=== PATIENT | male | born 1950 | race Caucasian/White ===

== ENCOUNTER 2019-08-14 07:26 | Emergency (ER) | payer MEDICARE, BC ==
--- NOTE | 2019-08-14 08:31 | EDM.PDOC ---
ED HPI GENERAL MEDICAL PROBLEM - General Chief Complaint: Respiratory Problem Stated Complaint: SOB Time Seen by Provider: 08/14/19 08:24 Source of Information: Reports: Patient, Family, RN Notes Reviewed History Limitations: Reports: No Limitations - History of Present Illness INITIAL COMMENTS - FREE TEXT/NARRATIVE: 69-year-old gentleman presents emergency department with a complaint of shortness of breath, he has a known history of coronary artery disease as well as COPD, states over the last 3 days he is gotten progressively more short of breath he denies any weight gain had some fevers around 100 for the last 2 days but nothing today does have a pulse oximeter at home did not notice any hypoxia. Does produce yellow sputum no chest pain does get short of breath with exertion. - Related Data Allergies Allergy/AdvReac Type Severity Reaction Status Date / Time No Known Allergies Allergy Verified 08/14/19 07:43 Home Meds: Home Meds Aspirin [Halfprin] 81 mg PO DAILY 07/12/14 [History] Lisinopril 20 mg PO DAILY 07/12/14 [History] atorvaSTATin Calcium [Atorvastatin Calcium] 80 mg PO DAILY 07/12/14 [History] Albuterol Sulfate [Proair Hfa] 1 puff IH Q4H PRN 10/01/14 [History] carvediloL [Coreg] 25 mg PO BID 10/01/14 [History] Liraglutide [Victoza] 1.8 mg SUBCUT DAILY 12/30/14 [History] Budesonide/Formoterol [Symbicort 160-4.5 MCG] 1 puff IH ASDIRECTED 11/11/15 [ History] Spironolactone [Aldactone] 12.5 mg PO DAILY 11/11/15 [History] Torsemide [Demadex] 20 mg PO DAILY 11/11/15 [History] metFORMIN [Glucophage] 1,000 mg PO WITHDINNER 11/11/15 [History] metFORMIN [Glucophage] 1,500 mg PO ACBREAKFAST 11/11/15 [History] Acetaminophen/oxyCODONE [Percocet 325-5 MG] 1 - 2 tab PO Q4H PRN #40 tablet [Rx] Magnesium Hydroxide [Milk of Magnesia] 30 ml PO DAILY PRN #2 ml 11/16/15 [Rx] Magnesium Oxide 400 mg PO DAILY #90 tablet 11/16/15 [Rx] Albuterol/Ipratropium [DuoNeb 3.0-0.5 MG/3 ML] 3 ml .XX Q2H PRN #90 neb [Rx] Doxycycline [Vibramycin] 100 mg PO BID #14 cap 08/14/19 [Rx] predniSONE [Prednisone] 20 mg PO DAILY #7 tablet 08/14/19 [Rx] Past Medical History HEENT History: Reports: Impaired Vision Cardiovascular History: Reports: CAD, Heart Failure, High Cholesterol, Hypertension, [place], Pacemaker Respiratory History: Reports: COPD, Sleep Apnea Musculoskeletal History: Reports: Arthritis, Fracture Neurological History: Reports: Concussion Endocrine/Metabolic History: Reports: Diabetes, Type II, Obesity/BMI 30+ - Infectious Disease History Infectious Disease History: Reports: Chicken Pox, Measles, Mumps, Other (See Below) Other Infectious Disease History: mono x three as a child - Past Surgical History Cardiovascular Surgical History: Reports: AICD, Coronary Artery Stent GI Surgical History: Reports: Hernia Repair/Other, Other (See Below) Other GI Surgeries/Procedures: cyst removal, internal abdomen. Social & Family History - Tobacco Use Smoking Status *Q: Former Smoker Used Tobacco, but Quit: Yes Month/Year Tobacco Last Used: 07/2019 - Caffeine Use Caffeine Use: Reports: Coffee Other Caffeine Use: 3 cups per day - Recreational Drug Use Recreational Drug Use: No ED ROS GENERAL - Review of Systems Review Of Systems: See Below Constitutional: Reports: Fever HEENT: Reports: No Symptoms Respiratory: Reports: Shortness of Breath, Wheezing, Cough, Sputum Cardiovascular: Reports: Dyspnea on Exertion. Denies: Chest Pain GI/Abdominal: Reports: No Symptoms : Reports: No Symptoms Neurological: Reports: No Symptoms ED EXAM, GENERAL - Physical Exam Exam: See Below Exam Limited By: No Limitations General Appearance: Alert, WD/WN, No Apparent Distress Throat/Mouth: Normal Inspection, Normal Lips, Normal Teeth, Normal Gums, Normal Oropharynx, Normal Voice, No Airway Compromise Head: Atraumatic, Normocephalic Neck: Normal Inspection, Supple, Non-Tender, Full Range of Motion Respiratory/Chest: No Accessory Muscle Use, Decreased Breath Sounds, Crackles, Wheezing Cardiovascular: Regular Rate, Rhythm, No Murmur GI/Abdominal: Soft, Non-Tender Extremities: Normal Inspection, Normal Range of Motion, No Pedal Edema Course - Vital Signs Last Recorded V/S: Last Vital Signs Temp 96.3 F 08/14/19 07:42 Pulse 96 08/14/19 09:20 Resp 22 H 08/14/19 09:20 BP 113/61 08/14/19 09:20 Pulse Ox 90 L 08/14/19 09:20 - Orders/Labs/Meds Orders: Active Orders 24 hr Category Date Time Status EKG Documentation Completion [RC] ASDIRECTED Care 08/14/19 08:02 Active RT Aerosol Therapy [RC] ASDIRECTED Care 08/14/19 09:01 Active EKG 12 Lead [EK] Routine Ther 08/14/19 08:01 Ordered Labs: Laboratory Tests 08/14/19 08/14/19 Range/Units 08:16 08:16 WBC 7.4 (4.5-11.0) K/uL RBC 4.89 (4.30-5.90) M/uL Hgb 14.0 (12.0-15.0) g/dL Hct 43.8 (40.0-54.0) % MCV 90 (80-98) fL MCH 29 (27-31) pg MCHC 32 (32-36) % Plt Count 163 (150-400) K/uL Sodium 135 L (140-148) mmol/L Potassium 4.4 (3.6-5.2) mmol/L Chloride 100 (100-108) mmol/L Carbon Dioxide 25 (21-32) mmol/L Anion Gap 14.4 H (5.0-14.0) mmol/L BUN 14 (7-18) mg/dL Creatinine 1.1 (0.8-1.3) mg/dL Est Cr Clr Drug Dosing 61.32 mL/min Estimated GFR (MDRD) > 60 (>60) Glucose 162 H (74-106) mg/dL Calcium 8.8 (8.5-10.1) mg/dL Total Bilirubin 1.3 H (0.2-1.0) mg/dL AST 16 (15-37) U/L ALT 27 (12-78) U/L Alkaline Phosphatase 97 (46-116) U/L Troponin I < 0.017 (0.000-0.056) ng/mL NT-Pro-B Natriuret Pep 194 H (5-125) pg/mL Total Protein 8.0 (6.4-8.2) g/dL Albumin 3.7 (3.4-5.0) g/dL Globulin 4.3 H (2.3-3.5) g/dL Albumin/Globulin Ratio 0.9 L (1.2-2.2) Meds: Medications Discontinued Medications Generic Name Dose Route Start Last Admin Trade Name Freq PRN Reason Stop Dose Admin Albuterol/Ipratropium 3 ml 08/14/19 09:01 08/14/19 09:18 Duoneb 3.0-0.5 Mg/3 Ml NEB 08/14/19 09:02 3 ml ONETIME ONE Administration Methylprednisolone Sodium Succinate 125 mg 08/14/19 09:01 08/14/19 09:18 Solu-Medrol IVPUSH 08/14/19 09:02 125 mg ONETIME ONE Administration Departure - Departure Time of Disposition: 10:04 Disposition: Home, Self-Care 01 Condition: Fair Clinical Impression: COPD with acute bronchitis - Discharge Information Prescriptions: Albuterol/Ipratropium [DuoNeb 3.0-0.5 MG/3 ML] 3 ml .XX Q2H PRN #90 neb PRN Reason: Wheezing Doxycycline [Vibramycin] 100 mg PO BID #14 cap predniSONE [Prednisone] 20 mg PO DAILY #7 tablet Referrals: Sandro Delgado MD [Primary Care Provider] - Forms: ED Department Discharge Additional Instructions: Take your full course of antibiotics start today, take the full course of prednisone start tomorrow use your duo nebs as needed for wheezing or shortness of breath symptoms you can use this every couple hours. All your medications have been faxed to [facility]. Please follow-up with your primary care in 7 to 10 days for further evaluation considering oxygen study at night to see if you become hypoxic when your O2 saturation dips below 90. Call return to the emergency department worsening of symptoms Sepsis Event Note - Evaluation Sepsis Screening Result: No Definite Risk - Focused Exam Vital Signs: Vital Signs Temp Pulse Resp BP Pulse Ox 08/14/19 09:20 96 22 H 113/61 90 L 08/14/19 07:42 96.3 F 99 24 H 124/73 91 L 08/14/19 07:39 96.3 F 99 24 H 124/73 91 L Date Exam was Performed: 01/10/20 Time Exam was Performed: 10:02 - My Orders Last 24 Hours: My Active Orders 08/14/19 08:01 EKG 12 Lead [EK] Routine 08/14/19 08:02 EKG Documentation Completion [RC] ASDIRECTED 08/14/19 09:01 RT Aerosol Therapy [RC] ASDIRECTED - Assessment/Plan Last 24 Hours: My Active Orders 08/14/19 08:01 EKG 12 Lead [EK] Routine 08/14/19 08:02 EKG Documentation Completion [RC] ASDIRECTED 08/14/19 09:01 RT Aerosol Therapy [RC] ASDIRECTED Plan: Assessment Acuity = acute Site and laterality = COPD exacerbation with bronchitis Etiology = unknown Manifestations = wheezing, cough, hypoxia Location of injury = Home Lab values = CBC unremarkable total bilirubin elevated 1.3 consistent hyperbilirubinemia, troponins negative BNP within normal limits chest x-ray reveals no acute process EKG demonstrates normal sinus rhythm Plan He had good improvement with albuterol neb provided in the ED his hypoxia did improve to within normal limits 90-91. Discussed options with him he declined hospitalization therefore prescription written for doxycycline 100 mg p.o. twice daily x7 days, prednisone 20 mg once a day x7 days he did receive 125 mg Solu-Medrol in the ED, also prescription written for duo nebs and adenosine with supplies those medications have been faxed to [facility] he is going to follow-up with his primary care in 7 to 10 days for evaluation of hypoxia particularly at night This note was dictated using [employer] voice recognition software please call with any questions on syntax or grammar.
--- NOTE | 2019-08-14 08:41 | CRLCR ---
INDICATION: Shortness of breath TECHNIQUE: Chest 2 views. COMPARISON: 12/30/2014 FINDINGS: Cardiovascular and mediastinum: Heart size and vasculature are normal in caliber and appearance. Mediastinum is within normal limits. Left-sided transvenous pacer device. Lungs and pleural spaces: Lungs are clear. No sign of infiltrate or mass. No sign of pleural effusion. No pneumothorax. Bones and soft tissues: No significant findings. IMPRESSION: Unremarkable chest. Dictated by Mike Neff MD @ 08/14/2019 8:40:27 AM Dictated by: Mike Neff MD @ 08/14/2019 08:40:32 (Electronically Signed)
[2019-08-14] MEDS ORDERED: Albuterol/Ipratropium 3.0-0.5 MG/3 ML Neb Soln NEB ONE (09:01)
[2019-08-14] MEDS ORDERED: methylPREDNISolone Sodium Succinate 125 MG/2 ML SDV IVPUSH ONE (09:01)
[2019-08-14 09:22] VITALS: BP 113/61; PULSE 96
== END 2019-08-14 10:00 | disposition home or self-care (01) ==
LOC: JP.ED 07:26
DX: J44.0 Chronic obstructive pulmonary disease with (acute) lower respiratory infection (principal); J20.9 Acute bronchitis, unspecified; I25.2 Old myocardial infarction; I25.10 Atherosclerotic heart disease of native coronary artery without angina pectoris; E78.00 Pure hypercholesterolemia, unspecified; I11.0 Hypertensive heart disease with heart failure; I50.9 Heart failure, unspecified; E11.9 Type 2 diabetes mellitus without complications; E66.9 Obesity, unspecified; Z79.82 Long term (current) use of aspirin; Z79.899 Other long term (current) drug therapy; Z79.51 Long term (current) use of inhaled steroids; Z68.31 Body mass index [BMI] 31.0-31.9, adult; Z79.84 Long term (current) use of oral hypoglycemic drugs; Z87.891 Personal history of nicotine dependence
CPT/HCPCS: 36415; 71046; 80053; 83880; 84484; 85027; 93005; 93010; 94640; 96374; 99283; 99285; J2930; J7620-GY

== ENCOUNTER 2020-07-26 09:10 | Emergency (ER) | payer MEDICARE, BC ==
[2020-07-26 09:26] VITALS: BP 129/70; PULSE 90
--- NOTE | 2020-07-26 10:31 | EDM.PDOC ---
ED HPI GENERAL MEDICAL PROBLEM - General Chief Complaint: Respiratory Problem Stated Complaint: HARD TO BREATHE Time Seen by Provider: 07/26/20 10:28 Source of Information: Reports: Patient, RN Notes Reviewed History Limitations: Reports: No Limitations - History of Present Illness INITIAL COMMENTS - FREE TEXT/NARRATIVE: 69-year-old gentleman presents emergency department a complaint of shortness of breath, he has known history of COPD with chronic bronchitis he states he woke up this morning had difficulty breathing took his usual rescue medications however felt no relief.. Reports to the emergency department for further evaluation however at this time he feels he is back to his normal self wonders if he may have had some anxiety with shortness of breath and had a bit of a panic attack he did use his rescue inhaler feels it has worked now for him he feels back to his baseline he is. Has no fevers no body aches no loss of taste or smell - Related Data Allergies Allergy/AdvReac Type Severity Reaction Status Date / Time No Known Allergies Allergy Verified 08/14/19 07:43 Home Meds: Home Meds Aspirin [Halfprin] 81 mg PO DAILY 07/12/14 [History] atorvaSTATin Calcium [Atorvastatin Calcium] 40 mg PO WITHDINNER 07/12/14 [History] Albuterol Sulfate [Proair Hfa] 1 puff IH Q4H PRN 10/01/14 [History] carvediloL [Coreg] 25 mg PO BID 10/01/14 [History] Liraglutide [Victoza] 1.8 mg SUBCUT DAILY 12/30/14 [History] Spironolactone [Aldactone] 12.5 mg PO DAILY 11/11/15 [History] Torsemide [Demadex] 20 mg PO DAILY 11/11/15 [History] metFORMIN [Glucophage] 1,000 mg PO WITHDINNER 11/11/15 [History] metFORMIN [Glucophage] 1,500 mg PO ACBREAKFAST 11/11/15 [History] Magnesium Hydroxide [Milk of Magnesia] 30 ml PO DAILY PRN #2 ml 11/16/15 [Rx] Albuterol [Ventolin HFA] 1 puff INH Q6HR PRN 07/26/20 [History] Albuterol/Ipratropium [DuoNeb 3.0-0.5 MG/3 ML] 3 ml .XX Q6H PRN 07/26/20 [History] Budesonide/Formoterol Fumarate [Symbicort 160-4.5 Mcg Inhaler] 2 puff INH BID 07/26/20 [History] Cyanocobalamin (Vitamin B-12) [Vitamin B12] 1 tab PO DAILY 07/26/20 [History] Ferrous Sulfate 1 tab PO BID 07/26/20 [History] Magnesium Oxide 400 mg PO BID 07/26/20 [History] Sacubitril/Valsartan [Entresto 97 mg-103 mg Tablet] 1 tab PO BID 07/26/20 [History] Sotalol [Betapace] 1 tab PO BID 07/26/20 [History] Tiotropium [Spiriva HandiHaler] 1 cap INH DAILY 07/26/20 [History] Past Medical History HEENT History: Reports: Impaired Vision Cardiovascular History: Reports: CAD, Heart Failure, High Cholesterol, Hypertension, [place], Pacemaker Respiratory History: Reports: COPD, Sleep Apnea Musculoskeletal History: Reports: Arthritis, Fracture Neurological History: Reports: Concussion Endocrine/Metabolic History: Reports: Diabetes, Type II, Obesity/BMI 30+ - Infectious Disease History Infectious Disease History: Reports: Chicken Pox, Measles, Mumps, Other (See Below) Other Infectious Disease History: mono x three as a child - Past Surgical History HEENT Surgical History: Reports: None Cardiovascular Surgical History: Reports: AICD, Coronary Artery Stent GI Surgical History: Reports: Hernia Repair/Other, Other (See Below) Other GI Surgeries/Procedures: cyst removal, internal abdomen. Social & Family History - Tobacco Use Tobacco Use Status *Q: Former Tobacco User Used Tobacco, but Quit: Yes Month/Year Tobacco Last Used: 2019 - Caffeine Use Caffeine Use: Reports: Coffee Other Caffeine Use: 3 cups per day - Recreational Drug Use Recreational Drug Use: No ED ROS GENERAL - Review of Systems Review Of Systems: See Below Constitutional: Reports: No Symptoms HEENT: Reports: No Symptoms Respiratory: Reports: Shortness of Breath. Denies: Wheezing, Cough Cardiovascular: Reports: No Symptoms GI/Abdominal: Reports: No Symptoms ED EXAM, GENERAL - Physical Exam Exam: See Below Exam Limited By: No Limitations General Appearance: Alert, WD/WN, No Apparent Distress Respiratory/Chest: No Respiratory Distress, Lungs Clear, Normal Breath Sounds, No Accessory Muscle Use, Chest Non-Tender Cardiovascular: Regular Rate, Rhythm, No Murmur Course - Vital Signs Last Recorded V/S: Last Vital Signs Temp 96.8 F L 07/26/20 09:23 Pulse 90 07/26/20 09:23 Resp 20 07/26/20 09:23 BP 129/70 07/26/20 09:23 Pulse Ox 90 L 07/26/20 09:23 Departure - Departure Time of Disposition: 10:30 Disposition: Home, Self-Care 01 Condition: Fair Clinical Impression: COPD (chronic obstructive pulmonary disease) Qualifiers: COPD type: chronic bronchitis Chronic bronchitis type: simple Qualified Code(s): J41.0 - Simple chronic bronchitis - Discharge Information Instructions: Chronic Obstructive Pulmonary Disease Exacerbation, [id number] Referrals: PCP,None [Primary Care Provider] - Additional Instructions: Continue using your current medications, please followup with your primary care provider in 3-5 days if not better, please call return to the emergency department with worsening of symptoms. Sepsis Event Note (ED) - Evaluation Sepsis Screening Result: No Definite Risk - Focused Exam Vital Signs: Vital Signs Temp Pulse Resp BP Pulse Ox 07/26/20 09:23 96.8 F L 90 20 129/70 90 L 07/26/20 09:22 96.8 F L 90 20 129/70 90 L - Assessment/Plan Plan: Assessment Acuity = acute on chronic Site and laterality = chronic obstructive pulmonary disease Etiology = unknown possibly related to dyspnea related to ongoing disease with anxiety Manifestations = none Location of injury = Home Lab values = none Plan Elected to do watchful waiting at this time we will continue with his regular medications, return for follow-up if needed or follow-up with his primary care a s needed This note was dictated using [employer] voice recognition software please call with any questions on syntax or grammar.
== END 2020-07-26 10:45 | disposition home or self-care (01) ==
LOC: JP.ED 09:10
DX: J41.0 Simple chronic bronchitis (principal); I25.10 Atherosclerotic heart disease of native coronary artery without angina pectoris; I11.0 Hypertensive heart disease with heart failure; I50.9 Heart failure, unspecified; E78.00 Pure hypercholesterolemia, unspecified; I25.2 Old myocardial infarction; M19.90 Unspecified osteoarthritis, unspecified site; E11.9 Type 2 diabetes mellitus without complications; E66.9 Obesity, unspecified; Z68.32 Body mass index [BMI] 32.0-32.9, adult; Z79.82 Long term (current) use of aspirin; Z79.84 Long term (current) use of oral hypoglycemic drugs; Z79.899 Other long term (current) drug therapy; Z87.891 Personal history of nicotine dependence
CPT/HCPCS: 99283

== ENCOUNTER 2021-08-02 04:41 | Inpatient (IN) | payer MEDICARE, BC ==
[2021-08-02] MEDS ORDERED: methylPREDNISolone Sodium Succinate 125 MG/2 ML SDV IVPUSH ONE (04:57)
--- NOTE | 2021-08-02 05:06 | EDM.PDOC ---
<Ozzy Salvador - Last Filed: 08/02/21 06:45> ED HPI GENERAL MEDICAL PROBLEM - General Chief Complaint: Respiratory Problem Stated Complaint: [facility] Time Seen by Provider: 08/02/21 04:45 Source of Information: Reports: Patient, EMS History Limitations: Reports: No Limitations - History of Present Illness INITIAL COMMENTS - FREE TEXT/NARRATIVE: 70-year-old male with known COPD and coronary artery disease, presents with significant shortness of breath for the last 10 hours. It came on fairly suddenly last evening, he tried his rescue inhalers with no success. He called EMS this morning, they found him to be tripoding with O2 saturations in the 70s and very anxious. He arrived on 6 L of nasal cannula and O2 sats in the low 90s, however when he transferred over to the bed he dropped into the 80s so a nonrebreather was used temporarily. He did get a DuoNeb in route. He has no fevers or chills, no pain, no increased peripheral edema or cough. He is fully vaccinated for Covid. Denies any chest pain. He has had this happen to him a few times in the past and it was called "panic attack". Onset: Sudden (Symptoms started fairly suddenly last evening around 7-8 o'clock) Duration: Hour(s): (9 hours) Improves with: Reports: None Worsens with: Reports: Other (Activity causes increased shortness of breath), Movement Associated Symptoms: Reports: Cough, Malaise, Shortness of Breath, Weakness. Denies: Chest Pain, Fever/Chills, Headaches Treatments MATTRESS STUFFER: Reports: Other (see below) (Received a DuoNeb in route) denies pain Pain Score (Numeric/FACES): 0 - Related Data Allergies Allergy/AdvReac Type Severity Reaction Status Date / Time No Known Allergies Allergy Verified 08/02/21 04:48 Home Meds: Home Meds Aspirin [Halfprin] 81 mg PO DAILY 07/12/14 [History] atorvaSTATin Calcium [Atorvastatin Calcium] 40 mg PO WITHDINNER 07/12/14 [History] Albuterol Sulfate [Proair Hfa] 1 puff IH Q4H PRN 10/01/14 [History] carvediloL [Coreg] 25 mg PO BID 10/01/14 [History] Spironolactone [Aldactone] 12.5 mg PO DAILY 11/11/15 [History] Torsemide [Demadex] 20 mg PO ASDIRECTED PRN 11/11/15 [History] metFORMIN [Glucophage] 1,000 mg PO WITHDINNER 11/11/15 [History] metFORMIN [Glucophage] 1,500 mg PO ACBREAKFAST 11/11/15 [History] Albuterol [Ventolin HFA] 1 puff INH Q6HR PRN 07/26/20 [History] Albuterol/Ipratropium [DuoNeb 3.0-0.5 MG/3 ML] 3 ml .XX Q6H PRN 07/26/20 [History] Budesonide/Formoterol Fumarate [Symbicort 160-4.5 Mcg Inhaler] 2 puff INH BID 07/26/20 [History] Cyanocobalamin (Vitamin B-12) [Vitamin B12] 1 tab PO DAILY 07/26/20 [History] Ferrous Sulfate 1 tab PO BID 07/26/20 [History] Magnesium Oxide 400 mg PO BID 07/26/20 [History] Sacubitril/Valsartan [Entresto 97 mg-103 mg Tablet] 1 tab PO BID 07/26/20 [History] Sotalol [Betapace] 1 tab PO BID 07/26/20 [History] Tiotropium [Spiriva HandiHaler] 1 cap INH DAILY 07/26/20 [History] Cholecalciferol (Vitamin D3) [Cholecalciferol] 1 gm MC DAILY 08/08/20 [History] Clopidogrel [Plavix] 75 mg PO DAILY 08/02/21 [History] LORazepam [Ativan] 0.5 mg PO BID PRN 08/02/21 [History] traZODone 50 mg PO BEDTIME 08/02/21 [History] Past Medical History HEENT History: Reports: Impaired Vision, Other (See Below) Other HEENT History: glasses Cardiovascular History: Reports: CAD, Heart Failure, High Cholesterol, Hypertension, [place], Pacemaker, Stents Respiratory History: Reports: COPD, Sleep Apnea, Other (See Below) Other Respiratory History: Cpap Musculoskeletal History: Reports: Arthritis, Fracture Neurological History: Reports: Concussion Psychiatric History: Reports: Anxiety, Depression Endocrine/Metabolic History: Reports: Diabetes, Type II, Obesity/BMI 30+ Hematologic History: Reports: Anticoagulation Therapy - Infectious Disease History Infectious Disease History: Reports: Chicken Pox, Measles, Mumps, Other (See Below) Other Infectious Disease History: mono x three as a child - Past Surgical History HEENT Surgical History: Reports: None Cardiovascular Surgical History: Reports: AICD, Coronary Artery Stent GI Surgical History: Reports: Hernia Repair/Other, Other (See Below) Other GI Surgeries/Procedures: cyst removal, internal abdomen. Social & Family History - Tobacco Use Tobacco Use Status *Q: Never Tobacco User - Caffeine Use Caffeine Use: Reports: Coffee Other Caffeine Use: 3 cups per day - Recreational Drug Use Recreational Drug Use: No ED ROS GENERAL - Review of Systems Review Of Systems: See Below Constitutional: Reports: Malaise. Denies: Fever, Chills HEENT: Reports: No Symptoms Respiratory: Reports: Shortness of Breath, Cough Cardiovascular: Denies: Chest Pain, Palpitations GI/Abdominal: Reports: No Symptoms Skin: Reports: No Symptoms Neurological: Reports: No Symptoms. Denies: Headache Psychiatric: Reports: Anxiety ED EXAM, GENERAL - Physical Exam Exam: See Below Exam Limited By: No Limitations General Appearance: Alert, Anxious, Mild Distress Eye Exam: Bilateral Eye: Normal Inspection Head: Atraumatic Respiratory/Chest: Respiratory Distress (Mild to moderate respiratory distress), Decreased Breath Sounds (Diffuse decreased breath sounds, no rales rhonchi or wheezing) Cardiovascular: Regular Rate, Rhythm, Other (Very distant heart sounds, no murmur) GI/Abdominal: Soft, Non-Tender Extremities: Other (Just a trace of symmetric ankle edema) Neurological: Alert, Oriented Psychiatric: Anxious Skin Exam: Warm, Dry Course - Re-Assessments/Exams Free Text/Narrative Re-Assessment/Exam: 08/02/21 05:05 IV was started, CBC CMP and troponin were drawn and a 1 view chest x-ray ordered. A 4 Plex Covid was obtained and the patient was given 125 mg of Solu- Medrol. O2 supplementation was continued and gradually decreased. 08/02/21 05:43 Chest x-ray showed hyperinflated lungs very similar to his chest x-rays in the past 2 years. No infiltrate or effusion, no congestive failure seen. Patient was then given a Xopenex nebulizer and continue to improve. 08/02/21 06:45 Patient is now resting comfortably with O2 saturations around 90 to 91%. Troponin is negative, 4 Plex viral study is negative, white count is mildly elevated at 13.8 but chemistry profile is all normal. After the patient wakes up he can ambulate around and if he desaturates or still has significant shortness of breath he may need 1 day of hospitalization for treatment for COPD exacerbation. If he does well he can be discharged on some daily steroid and antibiotics. Care was turned over to Dr. Raymundo and also his case was discussed with Dr. Cevallos in case he needs admission. Departure - Departure Disposition: Refer to Observation Clinical Impression: COPD exacerbation - Discharge Information Referrals: PCP,None [Primary Care Provider] - Forms: ED Department Discharge Sepsis Event Note (ED) - Evaluation Sepsis Screening Result: No Definite Risk <Oliver Raymundo - Last Filed: 08/02/21 09:35> Course - Vital Signs Last Recorded V/S: Last Vital Signs Temp 98.0 F 08/02/21 05:30 Pulse 102 H 08/02/21 06:19 Resp 20 08/02/21 08:56 BP 107/55 L 08/02/21 08:56 Pulse Ox 93 L 08/02/21 08:56 - Orders/Labs/Meds Orders: Active Orders 24 hr Category Date Time Status RT Aerosol Therapy [RC] ASDIRECTED Care 08/02/21 05:34 Active Isolation [COMM] Stat Oth 08/02/21 04:56 Ordered Labs: Laboratory Tests 08/02/21 08/02/21 08/02/21 Range/Units 05:03 05:03 05:05 WBC 13.8 H (4.5-11.0) K/uL RBC 4.72 (4.30-5.90) M/uL Hgb 13.5 (12.0-15.0) g/dL Hct 41.9 (40.0-54.0) % MCV 89 (80-98) fL MCH 29 (27-31) pg MCHC 32 (32-36) % Plt Count 220 (150-400) K/uL Neut % (Auto) 75.7 H (36-66) % Lymph % (Auto) 14.7 L (24-44) % [place] % (Auto) 7.1 H (2-6) % Eos % (Auto) 2.1 (2-4) % Baso % (Auto) 0.4 (0-1) % Sodium 135 L (140-148) mmol/L Potassium 4.6 (3.6-5.2) mmol/L Chloride 97 L (100-108) mmol/L Carbon Dioxide 29 (21-32) mmol/L Anion Gap 13.6 (5.0-14.0) mmol/L BUN 15 (7-18) mg/dL Creatinine 1.2 (0.8-1.3) mg/dL Est Cr Clr Drug Dosing 55.42 mL/min Estimated GFR (MDRD) 60 (>60) Glucose 214 H (74-106) mg/dL Calcium 9.1 (8.5-10.1) mg/dL Total Bilirubin 1.0 (0.2-1.0) mg/dL AST 12 L (15-37) U/L ALT 23 (12-78) U/L Alkaline Phosphatase 77 (46-116) U/L Troponin I High Sens 12.8 (<=60.3) pg/mL Total Protein 7.3 (6.4-8.2) g/dL Albumin 3.7 (3.4-5.0) g/dL Globulin 3.6 H (2.3-3.5) g/dL Albumin/Globulin Ratio 1.0 L (1.2-2.2) Influenza Type A RNA Negative (NEGATIVE) RSV RNA (INAAT) Negative (NEGATIVE) Influenza Type B RNA Negative (NEGATIVE) SARS-CoV-2 RNA (RUSSELL) Negative (NEGATIVE) Meds: Medications Discontinued Medications Generic Name Dose Route Start Last Admin Trade Name Freq PRN Reason Stop Dose Admin Levalbuterol HCl 1.25 mg 08/02/21 05:33 08/02/21 05:40 Levalbuterol Hcl 1.25 Mg/3 Ml Neb NEB 08/02/21 05:34 1.25 mg ONETIME ONE Administration Methylprednisolone Sodium Succinate 125 mg 08/02/21 04:57 08/02/21 05:03 Methylprednisolone Sodium Succinate 125 Mg/2 Ml Sdv IVPUSH 08/02/21 04:58 125 mg ONETIME ONE Administration Departure - Departure Time of Disposition: 09:35 Condition: Fair Sepsis Event Note (ED) - Focused Exam Vital Signs: Vital Signs Temp Pulse Resp BP Pulse Ox 08/02/21 08:56 20 107/55 L 93 L 08/02/21 08:26 20 109/70 94 L 08/02/21 07:56 20 112/64 94 L 08/02/21 07:26 19 107/60 94 L 08/02/21 06:19 102 H 23 H 107/68 90 L 08/02/21 05:30 98.0 F 105 H 25 H 116/60 90 L 08/02/21 04:53 98.0 F 110 H 19 173/91 H 99 08/02/21 04:50 98.0 F 110 H 19 173/91 H 99 - Assessment/Plan Plan: Assessment Acuity = acute Site and laterality = COPD exacerbation with hypoxia on exertion Etiology = unknown Manifestations = none Location of injury = Home Plan KTook over care from Dr. Plata 7 AM plan was to reassess he remains O2 saturation low 90s on room air however when he was ambulated in the hallway his O2 saturation went down into the 70s he became hypoxic he did recover spontaneously. Called and discussed the case with hospitalist on-call he agreed to come evaluate the patient emergency department for admission This note was dictated using [employer] voice recognition software please call with any questions on syntax or grammar.
[2021-08-02] MEDS ORDERED: Levalbuterol HCl 1.25 MG/3 ML Neb NEB ONE (05:33)
[2021-08-02 05:46] LABS: CORONAVIRUS COVID-19 NAA NEGATIVE (NEGATIVE)
--- NOTE | 2021-08-02 09:07 | CR ---
CHEST: Portable 08/02/2021 at 5:10 AM CLINICAL HISTORY:SOB COMPARISON:2019 FINDINGS: Patient is a prior cardiac pacer/defibrillator. Heart size and pulmonary vascular are normal. Lungs are hyperaerated. No infiltrates are seen. There are no effusions.. Impression: Emphysematous changes No acute cardiopulmonary process
[2021-08-02] MEDS ORDERED: Azithromycin 250 MG Tab PO ONE (11:50)
--- NOTE | 2021-08-02 11:58 | PCM.HP.2 ---
H&P History of Present Illness - General Date of Service: 08/02/21 Admit Problem/Dx: Admission Diagnosis/Problem Admission Diagnosis/Problem Bronchitis Source of Information: Patient, Family, Provider History Limitations: Reports: No Limitations - History of Present Illness Initial Comments - Free Text/Narative: CC: I couldn't breath HPI: Corby presents today with shortness of breath that started around 7 PM the night before presentation. He reports that he had a good day yesterday before becoming short of breath yesterday evening. He did notice some mild dyspnea while he was cleaning the snow off of his car but otherwise felt well. His dyspnea progressed throughout the night despite several attempts to utilize a nebulizer. He does not have much of a cough. He has not had any chest pain. He is not aware of any fevers or chills. He is not aware of any sick contacts. No abdominal pain or nausea. Strength has been okay. Appetite has been good. He is not taking any new medications. He has not traveled anywhere. Work-up in the emergency room revealed mild leukocytosis and evidence for hypoxia. Initially he had some wheezing. He has continued to require 2 to 3 L of supplemental oxygen throughout the course of the emergency room stay. He did receive Solu-Medrol early this morning after arrival. Because of the persistent hypoxia the patient will be admitted for management of a presumed COPD exacerbation in the setting of probable bronchitis. denies pain Pain Score (Numeric/FACES): 0 - Related Data Allergies/Adverse Reactions: Allergies Allergy/AdvReac Type Severity Reaction Status Date / Time No Known Allergies Allergy Verified 08/02/21 12:22 Home Medications: Home Meds Aspirin [Halfprin] 81 mg PO DAILY 07/12/14 [History] atorvaSTATin Calcium [Atorvastatin Calcium] 40 mg PO WITHDINNER 07/12/14 [History] Albuterol Sulfate [Proair Hfa] 1 puff IH Q4H PRN 10/01/14 [History] carvediloL [Coreg] 25 mg PO BID 10/01/14 [History] Spironolactone [Aldactone] 12.5 mg PO DAILY 11/11/15 [History] Torsemide [Demadex] 20 mg PO ASDIRECTED PRN 11/11/15 [History] metFORMIN [Glucophage] 1,000 mg PO WITHDINNER 11/11/15 [History] metFORMIN [Glucophage] 1,500 mg PO ACBREAKFAST 11/11/15 [History] Albuterol [Ventolin HFA] 1 puff INH Q6HR PRN 07/26/20 [History] Albuterol/Ipratropium [DuoNeb 3.0-0.5 MG/3 ML] 3 ml NEB Q6H PRN 07/26/20 [Histo ry] Budesonide/Formoterol Fumarate [Symbicort 160-4.5 Mcg Inhaler] 2 puff INH BID 07/26/20 [History] Cyanocobalamin (Vitamin B-12) [Vitamin B12] 1 tab PO DAILY 07/26/20 [History] Ferrous Sulfate 1 tab PO BID 07/26/20 [History] Magnesium Oxide 400 mg PO BID 07/26/20 [History] Sacubitril/Valsartan [Entresto 97 mg-103 mg Tablet] 1 tab PO BID 07/26/20 [History] Sotalol [Betapace] 1 tab PO BID 07/26/20 [History] Tiotropium [Spiriva HandiHaler] 1 cap INH DAILY 07/26/20 [History] Cholecalciferol (Vitamin D3) [Cholecalciferol] 1 gm MC DAILY 08/08/20 [History] Clopidogrel [Plavix] 75 mg PO DAILY 08/02/21 [History] LORazepam [Ativan] 0.5 mg PO BID PRN 08/02/21 [History] traZODone 50 mg PO BEDTIME 08/02/21 [History] Past Medical History HEENT History: Reports: Impaired Vision, Other (See Below) Other HEENT History: glasses Cardiovascular History: Reports: CAD, Heart Failure, High Cholesterol, Hypertension, [place], Pacemaker, Stents Respiratory History: Reports: COPD, Sleep Apnea, Other (See Below) Other Respiratory History: Cpap Musculoskeletal History: Reports: Arthritis, Fracture Neurological History: Reports: Concussion Psychiatric History: Reports: Anxiety, Depression Endocrine/Metabolic History: Reports: Diabetes, Type II, Obesity/BMI 30+ Hematologic History: Reports: Anticoagulation Therapy - Infectious Disease History Infectious Disease History: Reports: Chicken Pox, Measles, Mumps, Other (See Below) Other Infectious Disease History: mono x three as a child - Past Surgical History HEENT Surgical History: Reports: None Cardiovascular Surgical History: Reports: AICD, Coronary Artery Stent GI Surgical History: Reports: Hernia Repair/Other, Other (See Below) Other GI Surgeries/Procedures: cyst removal, internal abdomen. Social & Family History - Family History Cardiac: Reports: CAD - Tobacco Use Tobacco Use Status *Q: Never Tobacco User - Caffeine Use Caffeine Use: Reports: Coffee Other Caffeine Use: 3 cups per day - Alcohol Use Alcohol Use History: No Alcohol Use in Last Twelve Months: No - Recreational Drug Use Recreational Drug Use: No H&P Review of Systems - Review of Systems: Review Of Systems: See Below Free Text/Narrative: A complete 12 point review of systems was obtained. Pertinent positives and negatives are noted in the history of present illness. All other systems were reviewed and were negative except as noted. Exam - Exam Exam: See Below - Vital Signs Vital Signs: Last Vital Signs Temp 36.7 C 08/02/21 05:30 Pulse 91 08/02/21 11:12 Resp 23 H 08/02/21 11:12 BP 133/82 08/02/21 11:12 Pulse Ox 97 08/02/21 11:12 Weight: 96.162 kg - Exam Quality Assessment: Supplemental Oxygen General: Alert, Oriented, Cooperative. No: Mild Distress HEENT: Conjunctiva Clear, Mucosa Moist & [place] Neck: Supple, Trachea Midline. No: JVD Lungs: Normal Respiratory Effort, Crackles (mild diffuse exp ) Cardiovascular: Regular Rate, Regular Rhythm. No: Systolic Murmur GI/Abdominal Exam: Normal Bowel Sounds, Soft, Non-Tender, No Distention Extremities: Pedal Edema (trace bilateral ankle edema). No: Increased Warmth Peripheral Pulses: 2+: Dorsalis Pedis (L), Dorsalis Pedis (R) Skin: Warm, Dry Neuro Extensive - Mental Status: Alert, Oriented x3, Inattentive Neuro Extensive - Motor, Sensory, Reflexes: No: Dysarthria, Abnormal Motor, Tremor Psychiatric: Alert, Normal Affect - Patient Data Lab Results Last 24 hrs: Laboratory Results - last 24 hr 08/02/21 08/02/21 08/02/21 Range/Units 05:03 05:03 05:05 WBC 13.8 H (4.5-11.0) K/uL RBC 4.72 (4.30-5.90) M/uL Hgb 13.5 (12.0-15.0) g/dL Hct 41.9 (40.0-54.0) % MCV 89 (80-98) fL MCH 29 (27-31) pg MCHC 32 (32-36) % Plt Count 220 (150-400) K/uL Neut % (Auto) 75.7 H (36-66) % Lymph % (Auto) 14.7 L (24-44) % [place] % (Auto) 7.1 H (2-6) % Eos % (Auto) 2.1 (2-4) % Baso % (Auto) 0.4 (0-1) % Sodium 135 L (140-148) mmol/L Potassium 4.6 (3.6-5.2) mmol/L Chloride 97 L (100-108) mmol/L Carbon Dioxide 29 (21-32) mmol/L Anion Gap 13.6 (5.0-14.0) mmol/L BUN 15 (7-18) mg/dL Creatinine 1.2 (0.8-1.3) mg/dL Est Cr Clr Drug Dosing 55.42 mL/min Estimated GFR (MDRD) 60 (>60) Glucose 214 H (74-106) mg/dL Calcium 9.1 (8.5-10.1) mg/dL Total Bilirubin 1.0 (0.2-1.0) mg/dL AST 12 L (15-37) U/L ALT 23 (12-78) U/L Alkaline Phosphatase 77 (46-116) U/L Troponin I High Sens 12.8 (<=60.3) pg/mL Total Protein 7.3 (6.4-8.2) g/dL Albumin 3.7 (3.4-5.0) g/dL Globulin 3.6 H (2.3-3.5) g/dL Albumin/Globulin Ratio 1.0 L (1.2-2.2) Influenza Type A RNA Negative (NEGATIVE) RSV RNA (INAAT) Negative (NEGATIVE) Influenza Type B RNA Negative (NEGATIVE) SARS-CoV-2 RNA (RUSSELL) Negative (NEGATIVE) Result Diagrams: 08/02/21 05:03 08/02/21 05:03 Imaging Impressions Last 24 hrs: CXR-images personally reviewed-lungs clear with no mass, infiltrate or effusion. Hyperinflation of emphysema. Heart size normal. Sepsis Event Note - Evaluation Sepsis Screening Result: No Definite Risk - Focused Exam Vital Signs: Vital Signs Temp Pulse Resp BP Pulse Ox 08/02/21 11:12 91 23 H 133/82 97 08/02/21 10:22 20 123/72 95 08/02/21 09:52 19 119/63 94 L 08/02/21 09:21 20 97/61 95 08/02/21 08:56 20 107/55 L 93 L 08/02/21 08:26 20 109/70 94 L 08/02/21 07:56 20 112/64 94 L 08/02/21 07:26 19 107/60 94 L 08/02/21 06:19 102 H 23 H 107/68 90 L 08/02/21 05:30 36.7 C 105 H 25 H 116/60 90 L 08/02/21 04:53 36.7 C 110 H 19 173/91 H 99 08/02/21 04:50 36.7 C 110 H 19 173/91 H 99 *Q Meaningful Use (ADM) - VTE Risk Assess *Q Each Risk Factor Represents 1 Point: Obesity ( BMI > 25 kg/m2), Congestive heart failure (CHF), Serious lung disease including pneumonia, Abnormal Pulmonary Function (COPD) Total Score 1 Point Risk Factors: 4 Each Risk Factor Represents 2 Points: Age 60 - 74 Years Total Score 2 Point Risk Factors: 2 Each Risk Factor Represents 3 Points: None Total Score 3 Point Risk Factors: 0 Each Risk Factor Represents 5 Points: None Total Score 5 Point Risk Factors: 0 Venous Thromboembolism Risk Factor Score *Q: 6 - Problem List (1) COPD with acute bronchitis SNOMED Code(s): 890565194692074 ICD Code: J44.0 - CHR OBSTRUCTIVE PULMON DISEASE WITH (ACUTE) LOWER RESP INFCT; J20.9 - ACUTE BRONCHITIS, UNSPECIFIED Status: Acute Current Visit: No (2) Acute respiratory failure with hypoxia SNOMED Code(s): 07000262, 024353673 ICD Code: J96.01 - ACUTE RESPIRATORY FAILURE WITH HYPOXIA Status: Acute Current Visit: Yes (3) Congestive heart failure due to left ventricular systolic dysfunction SNOMED Code(s): 141953827 ICD Code: I50.20 - UNSPECIFIED SYSTOLIC (CONGESTIVE) HEART FAILURE Status: Chronic Current Visit: No (4) Diabetes mellitus type 2 SNOMED Code(s): 03499789 ICD Code: E11.9 - TYPE 2 DIABETES MELLITUS WITHOUT COMPLICATIONS Status: Chronic Current Visit: No Problem List Initiated/Reviewed/Updated: Yes Orders Last 24hrs: Active Orders 24 hr Category Date Time Status Patient Status Manage Transfer [TRANSFER] Routine ADT 08/02/21 11:45 Active RT Aerosol Therapy [RC] ASDIRECTED Care 08/02/21 05:34 Active Isolation [COMM] Stat Oth 08/02/21 04:56 Ordered Resuscitation Status Routine Resus Stat 08/02/21 11:47 Ordered Assessment/Plan Comment:: ASSESSMENT AND PLAN - Acute bronchitis-complicated by an exacerbation of his COPD with emphysema. He is currently hypoxic and requiring supplemental oxygen. Symptomatically he feels better but remains hypoxic at rest and especially with activity. He has received IV Solu-Medrol. Procalcitonin is low but examination is consistent with bronchitis. There is no evidence for volume overload at this time. -Empiric antibiotic coverage with doxycycline -Prednisone 40 mg daily starting this afternoon -Scheduled and as needed nebulizers -Continue supplemental oxygen, wean as able -Symptomatic management of cough if present Heart failure reduced ejection fraction-chronic and seems to be stable at this point. No evidence for volume overload. -Continue medical management Type 2 diabetes mellitus-controlled with oral medications. -Continue home medications Maintenance issues - -DVT prophylaxis-SCDs -GI prophylaxis-not indicated -Nutrition-consistent carbohydrates -Miller catheter- CODE STATUS -not indicated Admission justification -this patient will be admitted for inpatient services and is medically appropriate meeting medical necessity for inpatient admission as outlined in my documentation. I reasonably expect the patient will require inpatient services that span a period time over 2 midnights. I reasonably expect this patient to be discharged or transferred within 96 hours [facility]. Disposition -I anticipate discharge home after the hospital stay Primary care physician - Shauna Cevallos M.D. - Mortality Measure Prognosis:: Good
[2021-08-02] MEDS ORDERED: Albuterol 0.083% 2.5 MG/3 ML Neb Soln NEB PRN (12:14)
[2021-08-02] MEDS ORDERED: Acetaminophen 325 MG Tab PO PRN (12:14)
[2021-08-02] MEDS ORDERED: Ondansetron 4 MG Tab.DIS PO PRN (12:14)
[2021-08-02] MEDS ORDERED: Melatonin 3 MG Tab PO PRN (12:14)
[2021-08-02] MEDS ORDERED: Ondansetron 4 MG/2 ML SDV IV PRN (12:14)
[2021-08-02] MEDS ORDERED: LORazepam 0.5 MG Tab PO PRN (12:14)
[2021-08-02] MEDS ORDERED: Magnesium Hydroxide 400 MG/5 ML Susp 30 ML Cup PO PRN (12:14)
[2021-08-02] MEDS ORDERED: LORazepam 2 MG/ML SDV IVPUSH PRN (12:14)
[2021-08-02] MEDS ORDERED: predniSONE 20 MG Tab PO ONE (13:00)
[2021-08-02] MEDS: Doxycycline 100 MG Cap PO SCH ×2 (13:09→21:13)
[2021-08-02] MEDS: Clopidogrel 75 MG Tab PO SCH (13:10)
[2021-08-02] MEDS: Aspirin 81 MG Tab.EC PO SCH (13:10)
[2021-08-02] MEDS: Albuterol/Ipratropium 3.0-0.5 MG/3 ML Neb Soln NEB SCH ×2 (14:34→21:13)
[2021-08-02] MEDS ORDERED: metFORMIN 500 MG Tab PO SCH (17:00)
[2021-08-02] MEDS ORDERED: Non-Formulary Medication 1 Each (Metformin [Glucophage] 1,000 MG Tablet) PO SCH (17:00)
[2021-08-02] MEDS ORDERED: atorvaSTATin 20 MG Tab PO SCH (17:00)
[2021-08-02] MEDS ORDERED: Non-Formulary Medication 1 Each (Atorvastatin Calcium [Atorvastatin Calcium] 80 MG Tablet) PO SCH (17:00)
[2021-08-02] MEDS ORDERED: traZODone 50 MG Tab PO SCH (21:00)
[2021-08-02] MEDS ORDERED: Non-Formulary Medication 1 Each (Sacubitril/Valsartan [Entresto 97 Mg-103 Mg Tablet] 1 EAC PO SCH (21:00)
[2021-08-02] MEDS ORDERED: CARVEDILOL 6.25 MG PO SCH (21:00)
[2021-08-02] MEDS ORDERED: Non-Formulary Medication 1 Each (Budesonide/Formoterol Fumarate [Symbicort 160-4.5 Mcg Inh INH SCH (21:00)
[2021-08-02] MEDS: Carvedilol 12.5 MG Tab PO SCH (21:13)
[2021-08-02] MEDS: Lactobacillus Rhamnosus GG (Probiotic) Cap PO SCH (21:13)
[2021-08-02] MEDS: Formoterol/Mometasone 200-5 MCG 8.8 GM Inhaler IH SCH (21:14)
[2021-08-02] MEDS: ENTRESTO PO SCH (21:14)
[2021-08-02] MEDS: Sotalol 80 MG Tab PO SCH (21:16)
[2021-08-03] MEDS ORDERED: Tiotropium Bromide 4 GM Inhalation Spray (2.5mcg/1 dose; 10 doses) INH SCH (07:00)
[2021-08-03] MEDS: Formoterol/Mometasone 200-5 MCG 8.8 GM Inhaler IH SCH (07:18)
[2021-08-03] MEDS: Albuterol/Ipratropium 3.0-0.5 MG/3 ML Neb Soln NEB SCH ×2 (07:18→10:41)
[2021-08-03] MEDS ORDERED: metFORMIN 500 MG Tab PO SCH ×2 (07:30→09:00)
[2021-08-03] MEDS ORDERED: Non-Formulary Medication 1 Each (Metformin [Glucophage] 1,000 MG Tablet) PO SCH (07:30)
[2021-08-03] MEDS ORDERED: predniSONE 20 MG Tab PO SCH (08:00)
[2021-08-03] MEDS ORDERED: Cyanocobalamin (Vitamin B12) 1,000 MCG Tab PO SCH (09:00)
[2021-08-03] MEDS ORDERED: [UNRECOGNIZED DRUG - OTHER] PO SCH (09:00)
[2021-08-03] MEDS ORDERED: Spironolactone 25 MG Tab PO SCH (09:00)
[2021-08-03] MEDS ORDERED: CYANOCOBALAMIN 2500 MCG PO SCH (09:00)
[2021-08-03] MEDS ORDERED: Clopidogrel 75 MG Tab PO SCH (09:00)
[2021-08-03] MEDS ORDERED: [UNRECOGNIZED DRUG - OTHER] INH SCH (09:00)
[2021-08-03] MEDS ORDERED: Aspirin 81 MG Tab.EC PO SCH (09:00)
[2021-08-03] MEDS: Lactobacillus Rhamnosus GG (Probiotic) Cap PO SCH (09:21)
[2021-08-03] MEDS: Sotalol 80 MG Tab PO SCH (09:21)
[2021-08-03] MEDS: ENTRESTO PO SCH (09:22)
[2021-08-03] MEDS: Doxycycline 100 MG Cap PO SCH (09:22)
[2021-08-03] MEDS: Clopidogrel 75 MG Tab PO SCH (09:22)
[2021-08-03] MEDS: Carvedilol 12.5 MG Tab PO SCH (09:22)
[2021-08-03] MEDS: Aspirin 81 MG Tab.EC PO SCH (09:22)
[2021-08-03 11:35] VITALS: BP 108/84; PULSE 81
--- NOTE | 2021-08-03 11:43 | PCM.DCSUM1 ---
Discharge Summary - Hospital Course Brief History: 71-year-old male with history of congestive heart failure with reduced ejection fraction, COPD and type 2 diabetes mellitus who presented with acute onset of dyspnea. He was admitted for management of a suspected COPD exacerbation with possible bronchitis and hypoxic respiratory failure. Diagnosis: Stroke: No - Discharge Data Discharge Date: 08/03/21 Discharge Disposition: Home, Self-Care 01 Condition: Good - Referral to Home Health Primary Care Physician: PCP None - Discharge Diagnosis/Problem(s) (1) COPD with acute bronchitis SNOMED Code(s): 137527725866229 ICD Code: J44.0 - CHR OBSTRUCTIVE PULMON DISEASE WITH (ACUTE) LOWER RESP INFCT; J20.9 - ACUTE BRONCHITIS, UNSPECIFIED Status: Resolved (2) Acute respiratory failure with hypoxia SNOMED Code(s): 56281016, 322601624 ICD Code: J96.01 - ACUTE RESPIRATORY FAILURE WITH HYPOXIA Status: Acute (3) Congestive heart failure due to left ventricular systolic dysfunction SNOMED Code(s): 678923702 ICD Code: I50.20 - UNSPECIFIED SYSTOLIC (CONGESTIVE) HEART FAILURE Status: Chronic (4) Diabetes mellitus type 2 SNOMED Code(s): 00255568 ICD Code: E11.9 - TYPE 2 DIABETES MELLITUS WITHOUT COMPLICATIONS Status: Chronic - Patient Summary/Data Hospital Course: Corby presented to the emergency room with fairly acute onset of dyspnea. Work-up in the emergency room revealed hypoxia and mild leukocytosis. There was suspicion for an exacerbation of his COPD, possibly secondary to bronchitis. The other consideration is mild volume overload related to recent exertion although there was no strong evidence to support this based on examination or chest x-ray. The patient was started on steroids and empiric antibiotics. He required hospitalization because of his hypoxic respiratory failure. Overnight following admission there were no acute issues. We are able to wean down and eventually wean off his supplemental oxygen. The patient feels well. He has not had any fevers. He is not doing any coughing. Volume status seems appropriate again today. He feels well and would like to go home. I think he is safe to go home at this point given his rapid improvement. This may have been an environmental cause for his COPD exacerbation versus possibly overexertion leading to temporary pulmonary vascular congestion and hypoxia. Clinically is doing well and no additional treatment is needed at this time. At the time of admission it was expected that the patient would require a hospital stay that spanned at least 2 midnights to manage his presumed COPD exacerbation and hypoxic respiratory failure. He improved much faster than I expected given the severity of his difficulties at presentation. He is off oxygen, stable and ready for discharge after just 24 hours of hospitalization. - Patient Instructions Diet: Usual Diet as Tolerated Activity: As Tolerated Driving: May Drive Today Showering/Bathing: May Shower Other/Special Instructions: 1. You were in the hospital for management of a mild COPD exacerbation that did result in hypoxia. Your condition has improved very quickly with treatment provided in the emergency room in the hospital. The exact cause for the exacerbation is not entirely clear. A mild infection, probably viral, could explain this. The other possibility is that the snow removal process stressed your heart slightly and caused you to retain fluid and a large enough volume to make your oxygen levels drop temporarily. You have improved significantly and no longer require oxygen. I do not recommend any medication changes at this time other than I would encourage you to use your nebulizer more frequently, especially before any activity and with episodes of dyspnea. 2. Continue your usual home medications as previously prescribed. 3. Follow-up if symptoms do not continue to get better or if they get worse. - Discharge Plan *PRESCRIPTION DRUG MONITORING PROGRAM REVIEWED*: Not Applicable *COPY OF PRESCRIPTION DRUG MONITORING REPORT IN PATIENT ALEXIA: Not Applicable Home Medications: Home Meds Aspirin [Halfprin] 81 mg PO DAILY 07/12/14 [History] atorvaSTATin Calcium [Atorvastatin Calcium] 40 mg PO WITHDINNER 07/12/14 [History] Albuterol Sulfate [Proair Hfa] 1 puff IH Q4H PRN 10/01/14 [History] carvediloL [Coreg] 25 mg PO BID 10/01/14 [History] Spironolactone [Aldactone] 12.5 mg PO DAILY 11/11/15 [History] Torsemide [Demadex] 20 mg PO ASDIRECTED PRN 11/11/15 [History] metFORMIN [Glucophage] 1,000 mg PO WITHDINNER 11/11/15 [History] metFORMIN [Glucophage] 1,500 mg PO ACBREAKFAST 11/11/15 [History] Albuterol [Ventolin HFA] 1 puff INH Q6HR PRN 07/26/20 [History] Albuterol/Ipratropium [DuoNeb 3.0-0.5 MG/3 ML] 3 ml NEB Q6H PRN 07/26/20 [History] Budesonide/Formoterol Fumarate [Symbicort 160-4.5 Mcg Inhaler] 2 puff INH BID 07/26/20 [History] Cyanocobalamin (Vitamin B-12) [Vitamin B12] 1 tab PO DAILY 07/26/20 [History] Ferrous Sulfate 1 tab PO BID 07/26/20 [History] Magnesium Oxide 400 mg PO BID 07/26/20 [History] Sacubitril/Valsartan [Entresto 97 mg-103 mg Tablet] 1 tab PO BID 07/26/20 [History] Sotalol [Betapace] 1 tab PO BID 07/26/20 [History] Tiotropium [Spiriva HandiHaler] 1 cap INH DAILY 07/26/20 [History] Cholecalciferol (Vitamin D3) [Cholecalciferol] 1 gm MC DAILY 08/08/20 [History] Clopidogrel [Plavix] 75 mg PO DAILY 08/02/21 [History] LORazepam [Ativan] 0.5 mg PO BID PRN 08/02/21 [History] traZODone 50 mg PO BEDTIME 08/02/21 [History] Oxygen Therapy Mode: Room Air Patient Handouts: Chronic Obstructive Pulmonary Disease Exacerbation, [id number] Referrals: PCP,None [Primary Care Provider] - (f/u as needed if your symptoms do not continue to get better or if they get worse.) - Discharge Summary/Plan Comment DC Time >30 min.: No Total # of Minutes for Discharge Time: 25 - Patient Data Vitals - Most Recent: Last Vital Signs Temp 35.7 C L 08/03/21 11:33 Pulse 81 08/03/21 11:33 Resp 18 08/03/21 11:33 BP 108/84 08/03/21 11:33 Pulse Ox 94 L 08/03/21 11:33 Weight - Most Recent: 96.162 kg I&O - Last 24 hours: Intake & Output 08/02/21 08/03/21 08/03/21 22:59 06:59 14:59 Intake Total 240 500 Balance 240 500 Lab Results - Last 24 hrs: Laboratory Results - last 24 hr 08/02/21 08/03/21 08/03/21 Range/Units 05:03 04:13 04:13 WBC 13.4 H (4.5-11.0) K/uL RBC 4.45 (4.30-5.90) M/uL Hgb 12.8 (12.0-15.0) g/dL Hct 39.4 L (40.0-54.0) % MCV 89 (80-98) fL MCH 29 (27-31) pg MCHC 33 (32-36) % Plt Count 207 (150-400) K/uL Sodium 135 L (140-148) mmol/L Potassium 4.6 (3.6-5.2) mmol/L Chloride 98 L (100-108) mmol/L Carbon Dioxide 29 (21-32) mmol/L Anion Gap 12.6 (5.0-14.0) mmol/L BUN 18 (7-18) mg/dL Creatinine 1.1 (0.8-1.3) mg/dL Est Cr Clr Drug Dosing 60.45 mL/min Estimated GFR (MDRD) > 60 (>60) Glucose 210 H (74-106) mg/dL Calcium 9.0 (8.5-10.1) mg/dL C-Reactive Protein < 0.05 (0.0-0.3) mg/dL Med Orders - Current: Current Medications Acetaminophen (Acetaminophen 325 Mg Tab) 650 mg PO Q4H PRN PRN Reason: Pain (Mild 1-3)/fever Albuterol (Albuterol 0.083% 2.5 Mg/3 Ml Neb Soln) 2.5 mg NEB Q4H PRN PRN Reason: Shortness Of Breath/wheezing Albuterol/Ipratropium (Albuterol/Ipratropium 3.0-0.5 Mg/3 Ml Neb Soln) 3 ml NEB QIDRT [facility] Last Admin: 08/03/21 10:41 Dose: 3 ml Documented by: Aspirin (Aspirin 81 Mg Tab.Ec) 81 mg PO DAILY [facility] Last Admin: 08/03/21 09:22 Dose: 81 mg Documented by: Atorvastatin Calcium (Atorvastatin 20 Mg Tab) 40 mg PO WITHDINNER [facility] Last Admin: 08/02/21 16:48 Dose: 40 mg Documented by: Carvedilol (Carvedilol 12.5 Mg Tab) 25 mg PO BID [facility] Last Admin: 12/30/21 09:22 Dose: 25 mg Documented by: Clopidogrel Bisulfate (Clopidogrel 75 Mg Tab) 75 mg PO DAILY [facility] Last Admin: 08/03/21 09:22 Dose: 75 mg Documented by: Cyanocobalamin (Cyanocobalamin (Vitamin B12) 1,000 Mcg Tab) 2,500 mcg PO DAILY [facility] Last Admin: 08/03/21 09:21 Dose: 2,500 mcg Documented by: Doxycycline Hyclate (Doxycycline 100 Mg Cap) 100 mg PO BID [facility] Last Admin: 08/03/21 09:22 Dose: 100 mg Documented by: Lactobacillus Rhamnosus (Lactobacillus Rhamnosus Gg (Probiotic) Cap) 1 cap PO BID [facility] Last Admin: 08/03/21 09:21 Dose: 1 cap Documented by: Lorazepam (Lorazepam 0.5 Mg Tab) 0.5 mg PO BID PRN PRN Reason: Anxiety Lorazepam (Lorazepam 2 Mg/Ml Sdv) 0.5 mg IVPUSH Q4H PRN PRN Reason: Nausea/Vomiting Magnesium Hydroxide (Magnesium Hydroxide 400 Mg/5 Ml Susp 30 Ml Cup) 30 ml PO Q12H PRN PRN Reason: Constipation Melatonin (Melatonin 3 Mg Tab) 9 mg PO BEDTIME PRN PRN Reason: Sleep Metformin HCl (Metformin 500 Mg Tab) 1,000 mg PO WITHDINNER [facility] Last Admin: 08/02/21 16:48 Dose: 1,000 mg Documented by: Metformin HCl (Metformin 500 Mg Tab) 1,500 mg PO ACBREAKFAST [facility] Last Admin: 08/03/21 07:52 Dose: 1,500 mg Documented by: Mometasone Furoate/Formoterol Fumar (Formoterol/Mometasone 200-5 Mcg 8.8 Gm Inhaler) 2 puff IH BIDRT [facility] Last Admin: 08/03/21 07:18 Dose: 2 puff Documented by: Ondansetron HCl (Ondansetron 4 Mg/2 Ml Sdv) 4 mg IV Q6H PRN PRN Reason: Nausea/Vomiting Ondansetron HCl (Ondansetron 4 Mg Tab.Dis) 4 mg PO Q6H PRN PRN Reason: Nausea able to take PO Entresto 97mg/103mg (Tab (Ptom)) 1 each PO BID [facility] Last Admin: 08/03/21 09:22 Dose: 1 each Documented by: Prednisone (Prednisone 20 Mg Tab) 40 mg PO WITHBREAKFAST [facility] Last Admin: 08/03/21 07:52 Dose: 40 mg Documented by: Senna/Docusate Sodium (Docusate Sodium/Sennosides 50-8.6 Mg Tab) 1 tab PO BID PRN PRN Reason: Constipation Sotalol HCl (Sotalol 80 Mg Tab) 80 mg PO BID [facility] Last Admin: 08/03/21 09:21 Dose: 80 mg Documented by: Spironolactone (Spironolactone 25 Mg Tab) 12.5 mg PO DAILY [facility] Last Admin: 08/03/21 09:22 Dose: 12.5 mg Documented by: Tiotropium [place] (Tiotropium [place] 4 Gm Inhalation [place] (2.5mcg/1 Dose; 10 Doses)) [facility] Admin: 08/03/21 08:14 Dose: 2 puff Documented by: Trazodone HCl (Trazodone 50 Mg Tab) 50 mg PO BEDTIME [facility] Last Admin: 08/02/21 21:13 Dose: 50 mg Documented by: Discontinued Medications Aspirin (Aspirin 81 Mg Tab.Ec) 81 mg PO DAILY [facility] Azithromycin (Azithromycin 250 Mg Tab) 500 mg PO ONETIME ONE Stop: 08/02/21 11:51 Last Admin: 08/03/21 07:20 Dose: Not Given Documented by: Levalbuterol HCl (Levalbuterol Hcl 1.25 Mg/3 Ml Neb) 1.25 mg NEB ONETIME ONE Stop: 08/02/21 05:34 Last Admin: 08/02/21 05:40 Dose: 1.25 mg Documented by: Metformin HCl (Metformin 500 Mg Tab) 1,500 mg PO DAILY [facility] Methylprednisolone Sodium Succinate (Methylprednisolone Sodium Succinate 125 Mg/2 Ml Sdv) 125 mg IVPUSH ONETIME ONE Stop: 08/02/21 04:58 Last Admin: 08/02/21 05:03 Dose: 125 mg Documented by: Prednisone (Prednisone 20 Mg Tab) 40 mg PO ONETIME ONE Stop: 08/02/21 13:01 Last Admin: 08/02/21 13:10 Dose: 40 mg Documented by:
== END 2021-08-03 13:00 | disposition home or self-care (01) | DRG 189 ==
LOC: JP.ED 04:41 → JP.MS 11:45
PROVIDERS: ADMIT Internal Medicine; ATTEND Internal Medicine
DX: J96.01 Acute respiratory failure with hypoxia (principal); J44.0 Chronic obstructive pulmonary disease with (acute) lower respiratory infection; I50.22 Chronic systolic (congestive) heart failure; J44.1 Chronic obstructive pulmonary disease with (acute) exacerbation; I50.9 Heart failure, unspecified; I25.2 Old myocardial infarction; J20.9 Acute bronchitis, unspecified; Z95.0 Presence of cardiac pacemaker; G47.30 Sleep apnea, unspecified; E11.9 Type 2 diabetes mellitus without complications; H54.7 Unspecified visual loss; I25.10 Atherosclerotic heart disease of native coronary artery without angina pectoris; I11.0 Hypertensive heart disease with heart failure; E78.00 Pure hypercholesterolemia, unspecified; M19.90 Unspecified osteoarthritis, unspecified site; F41.9 Anxiety disorder, unspecified; F32.A Depression, unspecified; Z79.51 Long term (current) use of inhaled steroids; E66.9 Obesity, unspecified; Z79.01 Long term (current) use of anticoagulants; Z86.19 Personal history of other infectious and parasitic diseases; Z95.810 Presence of automatic (implantable) cardiac defibrillator; Z95.5 Presence of coronary angioplasty implant and graft; Z79.82 Long term (current) use of aspirin; Z79.84 Long term (current) use of oral hypoglycemic drugs; Z79.899 Other long term (current) drug therapy; Z79.02 Long term (current) use of antithrombotics/antiplatelets; Z20.822 Contact with and (suspected) exposure to COVID-19
CPT/HCPCS: 0241U; 36415; 71045; 71045-26; 80048; 80053; 84484; 85025; 85027; 86140; 94640; 96374; 99285-25; A9270-GY; J2930; J7512; J7612-GY; J7620-GY

== ENCOUNTER 2021-08-08 09:58 | Emergency (ER) | payer MEDICARE, BC ==
--- NOTE | 2021-08-08 10:43 | EDM.PDOC ---
ED HPI GENERAL MEDICAL PROBLEM - General Chief Complaint: Respiratory Problem Stated Complaint: SOB Time Seen by Provider: 08/08/21 10:34 Source of Information: Reports: Patient, Family, Old Records, RN Notes Reviewed History Limitations: Reports: No Limitations - History of Present Illness INITIAL COMMENTS - FREE TEXT/NARRATIVE: 71-year-old gentleman presents emergency department day complaint shortness of breath, he was recently admitted to the hospital for COPD exacerbation the story does sound familiar he is not oxygen dependent presented to the hospital being hypoxic was admitted did well within 48 hours was discharged home on room air he states he was doing well for about a week and then over the last 24 hours he has got progressively more short of breath requiring oxygen no fevers was found by EMS services to be hypoxic O2 saturation in the 70s was given a nebulizer in route arrival at the ED 88% given 2 L of oxygen responded to 92% - Related Data Allergies Allergy/AdvReac Type Severity Reaction Status Date / Time No Known Allergies Allergy Verified 08/08/21 10:17 Home Meds: Home Meds Aspirin [Halfprin] 81 mg PO DAILY 07/12/14 [History] atorvaSTATin Calcium [Atorvastatin Calcium] 40 mg PO WITHDINNER 07/12/14 [History] Albuterol Sulfate [Proair Hfa] 1 puff IH Q4H PRN 10/01/14 [History] carvediloL [Coreg] 25 mg PO BID 10/01/14 [History] Spironolactone [Aldactone] 12.5 mg PO DAILY 11/11/15 [History] Torsemide [Demadex] 20 mg PO ASDIRECTED PRN 11/11/15 [History] metFORMIN [Glucophage] 1,000 mg PO WITHDINNER 11/11/15 [History] metFORMIN [Glucophage] 1,500 mg PO ACBREAKFAST 11/11/15 [History] Albuterol [Ventolin HFA] 1 puff INH Q6HR PRN 07/26/20 [History] Albuterol/Ipratropium [DuoNeb 3.0-0.5 MG/3 ML] 3 ml NEB Q6H PRN 07/26/20 [History] Budesonide/Formoterol Fumarate [Symbicort 160-4.5 Mcg Inhaler] 2 puff INH BID 07/26/20 [History] Cyanocobalamin (Vitamin B-12) [Vitamin B12] 1 tab PO DAILY 07/26/20 [History] Ferrous Sulfate 1 tab PO BID 07/26/20 [History] Magnesium Oxide 400 mg PO BID 07/26/20 [History] Sacubitril/Valsartan [Entresto 97 mg-103 mg Tablet] 1 tab PO BID 07/26/20 [History] Sotalol [Betapace] 1 tab PO BID 07/26/20 [History] Tiotropium [Spiriva HandiHaler] 1 cap INH DAILY 07/26/20 [History] Cholecalciferol (Vitamin D3) [Cholecalciferol] 1 gm MC DAILY 08/08/20 [History] Clopidogrel [Plavix] 75 mg PO DAILY 08/02/21 [History] LORazepam [Ativan] 0.5 mg PO BID PRN 08/02/21 [History] traZODone 50 mg PO BEDTIME 08/02/21 [History] predniSONE [Prednisone] 20 mg PO DAILY #5 tablet 08/08/21 [Rx] Past Medical History HEENT History: Reports: Impaired Vision, Other (See Below) Other HEENT History: glasses Cardiovascular History: Reports: CAD, Heart Failure, High Cholesterol, Hypertension, [place], Pacemaker, Stents Respiratory History: Reports: COPD, Sleep Apnea, Other (See Below) Other Respiratory History: Cpap Musculoskeletal History: Reports: Arthritis, Fracture Neurological History: Reports: Concussion Psychiatric History: Reports: Anxiety, Depression Endocrine/Metabolic History: Reports: Diabetes, Type II, Obesity/BMI 30+ Hematologic History: Reports: Anticoagulation Therapy - Infectious Disease History Infectious Disease History: Reports: Chicken Pox, Measles, Mumps, Other (See Below) Other Infectious Disease History: mono x three as a child - Past Surgical History Cardiovascular Surgical History: Reports: AICD, Coronary Artery Stent GI Surgical History: Reports: Hernia Repair/Other, Other (See Below) Other GI Surgeries/Procedures: cyst removal, internal abdomen. Social & Family History - Family History Cardiac: Reports: CAD - Tobacco Use Tobacco Use Status *Q: Former Tobacco User Used Tobacco, but Quit: Yes Month/Year Tobacco Last Used: 0 - Caffeine Use Caffeine Use: Reports: Coffee Other Caffeine Use: 3 cups per day - Recreational Drug Use Recreational Drug Use: No ED ROS GENERAL - Review of Systems Review Of Systems: See Below Constitutional: Reports: Weakness. Denies: Fever, Chills HEENT: Reports: No Symptoms Respiratory: Reports: Shortness of Breath. Denies: Cough, Sputum Cardiovascular: Reports: Dyspnea on Exertion GI/Abdominal: Reports: No Symptoms ED EXAM, GENERAL - Physical Exam Exam: See Below Exam Limited By: No Limitations General Appearance: Alert, WD/WN, No Apparent Distress Respiratory/Chest: No Respiratory Distress, No Accessory Muscle Use, Decreased Breath Sounds. No: Crackles, Rales, Rhonchi Cardiovascular: Regular Rate, Rhythm, No Murmur GI/Abdominal: Soft, Non-Tender Extremities: No Pedal Edema Course - Vital Signs Last Recorded V/S: Last Vital Signs Temp 98.2 F 08/08/21 10:00 Pulse 94 08/08/21 12:05 Resp 24 H 08/08/21 10:00 BP 131/77 08/08/21 12:05 Pulse Ox 95 08/08/21 12:05 - Orders/Labs/Meds Orders: Active Orders 24 hr Category Date Time Status Vital Signs [RC] Q1H Care 08/08/21 10:39 Active Labs: Laboratory Tests 08/08/21 08/08/21 08/08/21 Range/Units 10:42 10:44 10:44 WBC 12.7 H (4.5-11.0) K/uL RBC 5.09 (4.30-5.90) M/uL Hgb 14.8 D (12.0-15.0) g/dL Hct 45.2 (40.0-54.0) % MCV 89 (80-98) fL MCH 29 (27-31) pg MCHC 33 (32-36) % Plt Count 222 (150-400) K/uL Neut % (Auto) 69.0 H (36-66) % Lymph % (Auto) 19.2 L (24-44) % [place] % (Auto) 8.6 H (2-6) % Eos % (Auto) 2.2 (2-4) % Baso % (Auto) 0.6 (0-1) % Sodium 138 L (140-148) mmol/L Potassium 4.2 (3.6-5.2) mmol/L Chloride 100 (100-108) mmol/L Carbon Dioxide 29 (21-32) mmol/L Anion Gap 13.2 (5.0-14.0) mmol/L BUN 22 H (7-18) mg/dL Creatinine 1.3 (0.8-1.3) mg/dL Est Cr Clr Drug Dosing 50.42 mL/min Estimated GFR (MDRD) 54 L (>60) Glucose 187 H (74-106) mg/dL Lactic Acid 1.2 (0.4-2.0) mmol/L Calcium 9.1 (8.5-10.1) mg/dL Total Bilirubin 1.2 H (0.2-1.0) mg/dL AST 12 L (15-37) U/L ALT 22 (12-78) U/L Alkaline Phosphatase 84 (46-116) U/L C-Reactive Protein 0.05 (0.0-0.3) mg/dL NT-Pro-B Natriuret Pep (5-125) pg/mL Total Protein 7.7 (6.4-8.2) g/dL Albumin 3.8 (3.4-5.0) g/dL Globulin 3.9 H (2.3-3.5) g/dL Albumin/Globulin Ratio 1.0 L (1.2-2.2) Procalcitonin ng/mL 08/08/21 08/08/21 Range/Units 10:44 10:50 WBC (4.5-11.0) K/uL RBC (4.30-5.90) M/uL Hgb (12.0-15.0) g/dL Hct (40.0-54.0) % MCV (80-98) fL MCH (27-31) pg MCHC (32-36) % Plt Count (150-400) K/uL Neut % (Auto) (36-66) % Lymph % (Auto) (24-44) % [place] % (Auto) (2-6) % Eos % (Auto) (2-4) % Baso % (Auto) (0-1) % Sodium (140-148) mmol/L Potassium (3.6-5.2) mmol/L Chloride (100-108) mmol/L Carbon Dioxide (21-32) mmol/L Anion Gap (5.0-14.0) mmol/L BUN (7-18) mg/dL Creatinine (0.8-1.3) mg/dL Est Cr Clr Drug Dosing mL/min Estimated GFR (MDRD) (>60) Glucose (74-106) mg/dL Lactic Acid (0.4-2.0) mmol/L Calcium (8.5-10.1) mg/dL Total Bilirubin (0.2-1.0) mg/dL AST (15-37) U/L ALT (12-78) U/L Alkaline Phosphatase (46-116) U/L C-Reactive Protein (0.0-0.3) mg/dL NT-Pro-B Natriuret Pep 265 H (5-125) pg/mL Total Protein (6.4-8.2) g/dL Albumin (3.4-5.0) g/dL Globulin (2.3-3.5) g/dL Albumin/Globulin Ratio (1.2-2.2) Procalcitonin < 0.05 ng/mL Meds: Medications Discontinued Medications Generic Name Dose Route Start Last Admin Trade Name Freq PRN Reason Stop Dose Admin Methylprednisolone Sodium Succinate 40 mg 08/08/21 12:35 08/08/21 13:28 Methylprednisolone Sodium Succinate 40 Mg/1 Ml Sdv IVPUSH 08/08/21 12:36 40 mg ONETIME ONE Administration Departure - Departure Time of Disposition: 15:29 Disposition: Home, Self-Care 01 Condition: Fair Clinical Impression: COPD with hypoxia - Discharge Information Prescriptions: predniSONE [Prednisone] 20 mg PO DAILY #5 tablet Instructions: Hypoxia Referrals: Shauna Mccartney PA-C [Primary Care Provider] - Forms: ED Department Discharge Additional Instructions: your medication of prednisone has been faxed to [facility] start this tomorrow 1 tablet daily, recommend follow-up with your primary care in the next 5 to 7 days for reevaluation Sepsis Event Note (ED) - Evaluation Sepsis Screening Result: Possible Sepsis Risk - Focused Exam Vital Signs: Vital Signs Temp Pulse Resp BP Pulse Ox 08/08/21 12:05 94 131/77 95 08/08/21 11:34 88 116/68 96 08/08/21 10:39 103 H 137/72 91 L 08/08/21 10:10 94 L 08/08/21 10:00 98.2 F 101 H 24 H 148/69 H 88 L - My Orders Last 24 Hours: My Active Orders 08/08/21 10:39 Vital Signs [RC] Q1H - Assessment/Plan Last 24 Hours: My Active Orders 08/08/21 10:39 Vital Signs [RC] Q1H Plan: Assessment Acuity = acute on chronic Site and laterality = COPD with hypoxia complicating the gentleman known history of diabetes mellitus type 2 and congestive heart failure Etiology = progression of disease Manifestations = hypoxia Location of injury = Home Lab values = WBC elevated 12.7 consistent with leukocytosis, glucose elevated 187 consistent hyperglycemia BNP slightly elevated 265 consistent with slight fluid overload probably related to cor pulmonale CRP normal 0.05 procalcitonin less than 0.05 chest x-ray reveals no acute process. I did ambulate him around the emergency department we started out at rest room air 96% however during ambulation this slowly declined 1 walk around the emergency department approximately 100feet he dropped to 90 then when we stopped his oxygen saturation plummeted to 76% he was given 2 L O2 which she recovered within 2 minutes Plan Plan is he is going to be set up with home oxygen 2 L continuous also given 40 mg Solu-Medrol while in the emergency department plan to do prednisone 20mg once a day for the next 5 days have him follow-up with his primary care in the next 5 to 7 days for reevaluation This note was dictated using [employer] voice recognition software please call with any questions on syntax or grammar.
--- NOTE | 2021-08-08 12:24 | CR ---
CHEST: 2 view CLINICAL HISTORY:SOB COMPARISON:08/02/2021 FINDINGS: Heart size and pulmonary vascularity are normal. Patient is a permanent cardiac pacer. There are atherosclerotic changes in the aorta. Lungs are mildly hyperaerated. No infiltrates are seen. Impression: Hyperaeration Permanent cardiac pacer No acute bony process
[2021-08-08] MEDS ORDERED: methylPREDNISolone Sodium Succinate 40 MG/1 ML SDV IVPUSH ONE (12:35)
[2021-08-08 13:55] VITALS: BP 131/77; PULSE 94
== END 2021-08-08 15:45 | disposition home or self-care (01) ==
LOC: JP.ED 09:58
DX: J44.9 Chronic obstructive pulmonary disease, unspecified (principal); R09.02 Hypoxemia; D72.829 Elevated white blood cell count, unspecified; I11.0 Hypertensive heart disease with heart failure; I50.9 Heart failure, unspecified; I25.10 Atherosclerotic heart disease of native coronary artery without angina pectoris; I25.2 Old myocardial infarction; E78.00 Pure hypercholesterolemia, unspecified; M19.90 Unspecified osteoarthritis, unspecified site; E11.9 Type 2 diabetes mellitus without complications; E66.9 Obesity, unspecified; Z68.31 Body mass index [BMI] 31.0-31.9, adult; Z87.891 Personal history of nicotine dependence; Z79.82 Long term (current) use of aspirin; Z79.84 Long term (current) use of oral hypoglycemic drugs; Z79.02 Long term (current) use of antithrombotics/antiplatelets; Z79.899 Other long term (current) drug therapy
CPT/HCPCS: 36415; 71046; 80053; 83605; 83880; 84145; 85025; 86140; 96374; 99285; J2920

== ENCOUNTER → 2022-05-17 | Day surgery (SDC) | payer MEDICARE, BC ==
[~2022-05-17] MED LIST: Sodium Chloride 0.9% 10 ML Syringe FLUSH ONE
== END ==
LOC: JP.SDS 06:00
PROVIDERS: ATTEND Ophthalmology
DX: E11.36 Type 2 diabetes mellitus with diabetic cataract (principal); H26.9 Unspecified cataract; H54.7 Unspecified visual loss; Z79.899 Other long term (current) drug therapy
CPT/HCPCS: 66984; J3490

== ENCOUNTER 2022-05-31 05:55 | Day surgery (SDC) | payer MEDICARE, BC ==
[2022-05-31] MEDS: Sodium Chloride 0.9% 10 ML Syringe FLUSH PRN (06:45)
[2022-05-31 07:55] VITALS: BP 112/61; PULSE 67
== END 2022-05-31 07:55 | disposition home or self-care (01) ==
LOC: JP.SDS 05:55
PROVIDERS: ATTEND Ophthalmology
DX: H25.12 Age-related nuclear cataract, left eye (principal)
CPT/HCPCS: 66984; J3490

== ENCOUNTER 2022-11-02 18:30 | Emergency (ER) | payer MEDICARE, BC ==
[2022-11-02] MEDS ORDERED: methylPREDNISolone Sodium Succinate 125 MG/2 ML SDV IVPUSH ONE (18:33)
[2022-11-02] MEDS ORDERED: Albuterol/Ipratropium 3.0-0.5 MG/3 ML Neb Soln NEB ONE (18:33)
[2022-11-02 19:11] LABS: ESTIMATED GFR 64 mL/min (>60)
[2022-11-02 19:27] LABS: CORONAVIRUS COVID-19 NAA NEGATIVE (NEGATIVE)
[2022-11-02 19:55] VITALS: BP 111/63; PULSE 91
== END 2022-11-02 20:24 | disposition home or self-care (01) ==
LOC: JP.ED 18:30
DX: J96.01 Acute respiratory failure with hypoxia (principal); J41.0 Simple chronic bronchitis; I25.10 Atherosclerotic heart disease of native coronary artery without angina pectoris; I11.0 Hypertensive heart disease with heart failure; I50.9 Heart failure, unspecified; E78.00 Pure hypercholesterolemia, unspecified; I25.2 Old myocardial infarction; J44.9 Chronic obstructive pulmonary disease, unspecified; M19.90 Unspecified osteoarthritis, unspecified site; E11.9 Type 2 diabetes mellitus without complications; E66.9 Obesity, unspecified; Z68.28 Body mass index [BMI] 28.0-28.9, adult; Z86.16 Personal history of COVID-19; Z72.0 Tobacco use; Z79.84 Long term (current) use of oral hypoglycemic drugs; Z79.899 Other long term (current) drug therapy; Z20.822 Contact with and (suspected) exposure to COVID-19
CPT/HCPCS: 0241U; 36415; 36600; 71046; 80053; 82803; 85025; 86140; 94640; 96374; 99285; J2930; J7620

== ENCOUNTER 2025-06-08 06:46 | Day surgery (SDC) | payer MEDICARE, BC ==
[2025-06-08] MEDS ORDERED: Propofol 200 MG/20 ML SDV ONE ×2 (07:21→08:28)
[2025-06-08] MEDS ORDERED: fentaNYL 50 MCG/ML SDV ONE (07:21)
[2025-06-08] MEDS: Lactated Ringers 1,000 ML IV SCH (07:37)
[2025-06-08 10:16] VITALS: BP 101/59; PULSE 94
== END 2025-06-08 10:17 | disposition home or self-care (01) ==
LOC: JP.SDS 06:46
PROVIDERS: ATTEND Surgery
DX: C18.0 Malignant neoplasm of cecum (principal); D12.5 Benign neoplasm of sigmoid colon; D12.3 Benign neoplasm of transverse colon; I11.0 Hypertensive heart disease with heart failure; I50.9 Heart failure, unspecified; E78.00 Pure hypercholesterolemia, unspecified; I25.10 Atherosclerotic heart disease of native coronary artery without angina pectoris; J44.9 Chronic obstructive pulmonary disease, unspecified; E11.9 Type 2 diabetes mellitus without complications; E66.9 Obesity, unspecified; Z79.82 Long term (current) use of aspirin; Z79.84 Long term (current) use of oral hypoglycemic drugs; Z79.899 Other long term (current) drug therapy
CPT/HCPCS: 00811; 45380; 45385; J2704; J3010; J7120